=== PATIENT | male | born 1970 | race Caucasian/White ===

== ENCOUNTER → 2017-06-17 | Outpatient (CLI) | payer BC ==
[~2017-06-17] MED LIST: AMO500 PO; IBU800 PO; IOPAMIDOL 76% 150 ML INFUS BTL 150 ML ONE; NO ROUTINE MEDS; NS 0.9% 50 ML VIAL 100 ML ONE; PER PO
--- NOTE | 2017-06-17 10:47 | RADIOLOGY IMAGING REPORT ---
FACILITY: [facility] [place] PATIENT NAME: Blayne Maloney : 1970 MR: [id number] V: [id number] EXAM DATE: ORDERING PHYSICIAN: GABBIE LOVE TECHNOLOGIST: Location: [facility] Patient: Blayne Maloney : 1970 Visit/Account:[id number] Date of Sevice: 06/17/2017 ABDOMEN/PELVIS W/WO CONTRAST HISTORY: Urolithiasis, partial ureteral duplication TECHNIQUE: Axial images acquired through the abdomen/pelvis both with and without IV contrast.. Rory nal and sagittal reformatting also performed. Dose Lowering Technique One of the following dose optimization techniques was utilized in the performance of this exam: Autom ated exposure control; adjustment of the mA and/or kV according to the patient's size; or use of an i terative reconstruction technique. Specific details can be referenced in the facility's radiology C T exam operational policy. CONTRAST: 125 mL [id number] COMPARISON: None. FINDINGS: Visualized lung bases: Negative. Hepatobiliary: Negative. Spleen: Negative. Adrenals: Negative. Pancreas: Negative. Kidneys ureters and bladder: There is no demonstration of urolithiasis, hydronephrosis or hydroureter . 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 A single ureter drains the right kidney. Genitalia: Negative. GI: Negative. Vessels/spaces/nodes: Negative. Bones/soft tissues: Negative. Additional findings: None pertinent. 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 Report Dictated By: Domitila Taylor MD at 06/17/2017 10:20 AM Report E-Signed By: Domitila Taylor MD at 06/17/2017 10:42 AM WSN:[id number]
== END ==
LOC: CT 01:02
PROVIDERS: ATTEND Urology
DX: R31.29 Other microscopic hematuria (principal); Z87.442 Personal history of urinary calculi
CPT/HCPCS: 74178; J7050; Q9967

== ENCOUNTER → 2018-02-06 | Outpatient (CLI) | payer BC ==
[~2018-02-06] MED LIST changes: -IOPAMIDOL 76% 150 ML INFUS BTL 150 ML ONE; -NS 0.9% 50 ML VIAL 100 ML ONE
== END ==
LOC: LAB 15:55
PROVIDERS: ATTEND Urology
DX: N40.1 Benign prostatic hyperplasia with lower urinary tract symptoms (principal); R97.20 Elevated prostate specific antigen [PSA]
CPT/HCPCS: 36415; 84153

== ENCOUNTER → 2018-11-11 | Outpatient (CLI) | payer BC | LOC: LAB 10:13 | PROVIDERS: ATTEND Urology | DX: R97.20 Elevated prostate specific antigen [PSA] (principal) | CPT/HCPCS: 36415; 84153 ==